=== PATIENT | female | born 1940 | race Caucasian/White ===

== ENCOUNTER 2016-07-13 09:54 | Emergency (ER) | payer OTHER ==
[~2016-07-13] VITALS: Ht 160 cm; Wt 59.0 kg
[~2016-07-13 09:54] MED LIST: DOS PO; ECOTRIN325 MG PO; FISH OIL1000 M1 PO; KEPPRA100 MG/ML PO; LIORESAL10 MG PO; LIPITOR80 MG PO; LORTAB 5/3251 TAB PO; OYSCO 500500 M1 PO; PAXIL40 MG PO; PLAVIX75 MG PO; PROTONIX40 MG PO; QVAR HFA M80 MCG/ACT IH; RESTORIL15 MG PO; TYLENOL #3 300/1 TAB PO; ULTRAM50 MG PO; VENTOLIN H0.09 MG/Ac IH; VITAMIN D31000 I1 PO; [UNRECOGNIZED DRUG - OTHER] PO
--- NOTE | 2016-07-13 09:54 | NUR ---
Patient was BIBA at this time and taken to bed 01 via gurney per EMS.
[2016-07-13 09:56] VITALS: BP 120/72
--- NOTE | 2016-07-13 10:02 | NUR ---
PT BIBA FOR EVALUATION OF SOB SINCE THIS AM. PER EMS PT IS SLIGHTLY LETHARGIC THIS AM AND O2 SATURATION IS IN 80.PT HAS 02 AT 2 LPM. W/ L ARM BANDAGE. EMS TRIED TO PUT IV ACCESS ON RT ARM BUT UNSUCCESSFUL. PT HAS HX OF COPD, GERD, OSTEOPOROSIS, HYPERLIPIDEMIA.PT AAOX4. NO ACUTE DISTRESS NOTED AT THIS TIME. HOB ELEVATED, SAFETY PRECAUTION INSTITUTED.SIDE RAILS UP. ALL MONITORS PLACED IN. DR YUSUF MADE AWARE OF PT CONDITION.
--- NOTE | 2016-07-13 10:14 | NUR ---
Dr. Masters evaluating patient at bedside.
--- NOTE | 2016-07-13 10:30 | NUR ---
[facility] AT BEDSIDE.
--- NOTE | 2016-07-13 10:47 | NUR ---
PT ASKED FOR WATER. KUSUM RUIZ TALKED TO . DR YUSUF SAYS OKAY TO GIVE FLUID. APPLE JUICE GIVEN TO PT.
[2016-07-13] MEDS ORDERED: predniSONE 20 MG TAB PO ONE (11:20)
[2016-07-13] MEDS ORDERED: HYDROcodone/APAP 5/325 MG 1 TAB TAB PO ONE (11:25)
--- NOTE | 2016-07-13 11:25 | NUR ---
NO ACUTE DISTRESS NOTED AT THIS TIME. PT AMBULATED TO RESTROOM.
--- NOTE | 2016-07-13 11:36 | NUR ---
PT IS RESTING ON BED COMFORTABLY. DAUGHTER AT BEDSIDE. NO ACUTE DISTRESS NOTED AT THIS TIME.NEEDS ATTENDED.WILL CONTINUE TO MONITOR PT.
--- NOTE | 2016-07-13 11:41 | NUR ---
Patient moved to bed 02.
--- NOTE | 2016-07-13 12:27 | NUR ---
PT IS LYING ON BED COMFORTABLY. NO ACUTE DISTRESS NOTED ATVTHIS TIME. PT IS THANKFUL FOR THE ENTIRE STAFF TAKING CARE OF HER.NEEDS ATTENDED. WILL CONTINUE TO MONITOR PT.
--- NOTE | 2016-07-13 13:12 | NUR ---
Patient discharged with v/s stable. Written and verbal after care instructions given and explained. Patient alert, oriented and verbalized understanding of instructions. Ambulatory with to car. All questions addressed prior to discharge. ID band removed. Patient advised to follow up with PMD. Rx of PREDNISONE,AZITHROMYCIN AND OXYGEN given. Patient educated on indication of medication including possible reaction and side effects. Opportunity to ask questions provided and answered.ENCOURAGED FLUID INTAKE AND PT AGREED TO IT.
[2016-07-13 13:15] VITALS: BP 124/74
== END 2016-07-13 13:12 | disposition home or self-care (01) ==
LOC: MED 09:54
DX: J44.1 Chronic obstructive pulmonary disease with (acute) exacerbation (principal); R09.02 Hypoxemia; F17.210 Nicotine dependence, cigarettes, uncomplicated; K21.9 Gastro-esophageal reflux disease without esophagitis; I10 Essential (primary) hypertension; E78.5 Hyperlipidemia, unspecified; Z79.82 Long term (current) use of aspirin; Z79.899 Other long term (current) drug therapy
CPT/HCPCS: 36415; 71010; 80053; 84484; 85025; 93005; 99285; J7512; Q0092

== ENCOUNTER 2016-12-08 15:53 | Emergency (ER) | payer OTHER ==
[~2016-12-08] VITALS: Ht 160 cm; Wt 54.4 kg
[~2016-12-08 15:53] MED LIST changes: +ALBU0.0912 IH; +ASPI-1052 PO; +BACL10TA4 PO; +BECL0.089 IH; +CALC500T19 PO; +CHOL100037 PO; -DOS PO; -ECOTRIN325 MG PO; -FISH OIL1000 M1 PO; +KEP500L PO; -KEPPRA100 MG/ML PO; -LIORESAL10 MG PO; +LIP80 PO; -LIPITOR80 MG PO; -LORTAB 5/3251 TAB PO; -OYSCO 500500 M1 PO; +PANT40EC PO; +PARO40TA1 PO; -PAXIL40 MG PO; -PLAVIX75 MG PO; -PROTONIX40 MG PO; -QVAR HFA M80 MCG/ACT IH; -RESTORIL15 MG PO; +TEMA15CA24 PO; +TYL3 PO; -TYLENOL #3 300/1 TAB PO; -ULTRAM50 MG PO; -VENTOLIN H0.09 MG/Ac IH; -VITAMIN D31000 I1 PO; +[UNRECOGNIZED DRUG - CODE] PO; +[UNRECOGNIZED DRUG - CODE] PO; -[UNRECOGNIZED DRUG - OTHER] PO
[2016-12-08 16:00] VITALS: BP 118/73
[2016-12-08] MEDS ORDERED: MAG SULF 2000 MG/WATER PREMIX 50 ML IV ONE (16:15)
[2016-12-08] MEDS ORDERED: ALBUTEROL 0.083% 2.5 MG/3 ML NEBU INH ONE (16:15)
[2016-12-08] MEDS ORDERED: IPRATROPIUM 0.02% 0.5 MG/2.5 ML NEBU INH ONE (16:15)
[2016-12-08] MEDS ORDERED: methylPREDNISolone SS 125 MG/2 ML VIAL IVP ONE (16:15)
[2016-12-08 16:38] LABS: MEAN CORPUSCULAR HGB CONC 32 g/dL (33-37)
--- NOTE | 2016-12-08 16:44 | NUR ---
Pt placed in bed 6 by EMS.
[2016-12-08 16:49] LABS: BASOPHILS # (AUTO) 0.2 K/uL (0.00-0.22); BASOPHILS % (AUTO) 3.2 % (0.0-2.0); EOSINOPHILS # (AUTO) 0.7 K/uL (0-0.4); EOSINOPHILS % (AUTO) 9.5 % (0.0-4.0); HEMATOCRIT 39.1 % (36-48); HEMOGLOBIN 12.6 g/dL (12.0-16.0); LYMPHOCYTES # (AUTO) 0.9 K/uL (2.5-16.5); LYMPHOCYTES % (AUTO) 12.5 % (20.5-51.1); MEAN CORPUSCULAR HEMOGLOBIN 29 pg (27-31); MEAN CORPUSCULAR VOLUME 90 fL (80-94); MONOCYTES # (AUTO) 0.6 K/uL (0.8-1.0); MONOCYTES % (AUTO) 8.7 % (1.7-9.3); NEUTROPHILS # (AUTO) 4.9 K/uL (1.8-7.7); NEUTROPHILS % (AUTO) 66.1 % (42.2-75.2); PLATELET COUNT (AUTO) 204 K/uL (140-450); RED BLOOD CELL COUNT(AUTO) 4.36 MIL/uL (4.20-5.40); RED CELL DISTRIBUTION WIDTH 14.4 % (11.6-13.7); WHITE BLOOD COUNT (AUTO) 7.3 K/uL (4.8-10.8)
[2016-12-08 16:52] LABS: ANION GAP 11.9 (8-16); CALCIUM 8.8 mg/dL (8.5-10.1); CARBON DIOXIDE 28.5 mmol/L (21-32); CHLORIDE 104 mmol/L (98-107); CREATININE 1.1 mg/dL (0.6-1.3); GLUCOSE 109 mg/dL (74-106); POTASSIUM 4.4 mmol/L (3.5-5.1); SODIUM SERUM 140 mmol/L (136-145); UREA NITROGEN, BLOOD 20 mg/dL (7-18)
[2016-12-08 16:56] LABS: PARTIAL THROMBOPLASTIN TIME 23.6 secs (22-35.6); PROTHROMBIN TIME 10.4 secs (10.8-13.4)
[2016-12-08 16:58] LABS: ALANINE AMINOTRANSFERASE 18 U/L (14-59); ALBUMIN 3.3 g/dL (3.4-5.0); ALKALINE PHOSPHATASE 76 U/L (46-116); ASPARTATE AMINOTRANSFERASE 21 U/L (15-37); TOTAL BILIRUBIN 0.3 mg/dL (0.0-1.0); TOTAL PROTEIN, SERUM 6.9 g/dL (6.4-8.2)
--- NOTE | 2016-12-08 17:00 | NUR ---
76/F c/o weakness and shortness of breath starting today. Pt minesh from [place]. Pt AOX4, clear speech. Per EMS, pt ran out of oxygen. Pt has hx COPD. Pt appears calm and relaxed in bed. Receiving oxygen via nc 2L. Pt tolerating well. No use of accessory muscles. RR even and unlabored. VSS.
--- NOTE | 2016-12-08 17:10 | NUR ---
Breathing treatment administered by respiratory therapist at bedside.
--- NOTE | 2016-12-08 17:19 | NUR ---
Daughter at bedside.
--- NOTE | 2016-12-08 17:40 | NUR ---
Pt assisted to restroom via w/c.
--- NOTE | 2016-12-08 17:45 | NUR ---
Pt assisted back to bed 6 via w/c
[2016-12-08 18:11] VITALS: BP 113/63
--- NOTE | 2016-12-08 18:11 | NUR ---
IV removed, catheter intact and site benign. Applied folded 4x4 gauze and tape to stop bleeding.
--- NOTE | 2016-12-08 18:12 | NUR ---
Patient discharged with v/s stable. Written and verbal after care instructions given and explained. Patient alert, oriented and verbalized understanding of instructions. Ambulatory with steady gait. All questions addressed prior to discharge. ID band removed. Patient advised to follow up with PMD. Rx of PROVENTIL INHALER, Z PACK, AND PREDNISONE given. Patient educated on indication of medication including possible reaction and side effects. Opportunity to ask questions provided and answered.
== END 2016-12-08 18:12 | disposition home or self-care (01) ==
LOC: MED 15:53
DX: J44.1 Chronic obstructive pulmonary disease with (acute) exacerbation (principal); K21.9 Gastro-esophageal reflux disease without esophagitis; I10 Essential (primary) hypertension; E78.5 Hyperlipidemia, unspecified; F17.210 Nicotine dependence, cigarettes, uncomplicated; Z86.73 Personal history of transient ischemic attack (TIA), and cerebral infarction without residual deficits; Z71.6 Tobacco abuse counseling
CPT/HCPCS: 36415; 71010; 80053; 82553; 83880; 84484; 85025; 85610; 85730; 93005; 94640; 96365; 96375; 99285; J2930; J3475; J7613; J7644; Q0092

== ENCOUNTER 2019-11-19 03:30 | Inpatient (IN) | payer OTHER, SELFPAY ==
[~2019-11-19] VITALS: Ht 162.6 cm; Wt 63.5 kg
[2019-11-19 03:30] VITALS: BP 133/65
[~2019-11-19 03:30] MED LIST changes: +ACET-503 PO; -TYL3 PO
--- NOTE | 2019-11-19 03:30 | NUR ---
PT TAKEN TO BED 1 BY BENIGNO.
--- NOTE | 2019-11-19 03:32 | NUR ---
79 YO F ELISABETHA FROM [facility] FOR O2 DESAT. PT IS COVID POSITIVE PER REPORT. PT IS A DNR, NONVERBAL ON ARRIVAL, AND A&OX1. S1S2 HEARD, LUNG SOUNDS CLEAR IN UPPER BASES, AND DIMINISHED IN BILATERAL LOWER BASES. PT PLACED ON MS SQL SERVER DEVELOPER AND 15L NON-REBREATHER MASK. BED LOCKED AND IN LOWEST POSITION. COMFORT MEASURES IN PLACE. NKA MED HX: COPD
--- NOTE | 2019-11-19 03:35 | NUR ---
PT HAD IV PLACED IN R HAND 20G PRIOR TO ARRIVAL. IV SITE IS PATENT.
[2019-11-19] MEDS ORDERED: MORPHINE SULFATE 4 MG/ML SYR IVP ONE (03:40)
[2019-11-19] MEDS ORDERED: NACL 0.9% 500 ML IV ONE (04:05)
--- NOTE | 2019-11-19 04:06 | NUR ---
XRAY AT BEDSIDE.
--- NOTE | 2019-11-19 04:19 | NUR ---
EKG BEING PERFORMED AT BEDSIDE.
[2019-11-19 04:36] LABS: ALBUMIN 2.2 g/dL (3.4-5.0); ASPARTATE AMINOTRANSFERASE 35 U/L (15-37); CREATININE 1.6 mg/dL (0.6-1.3); GLUCOSE 137 mg/dL (74-106); TOTAL BILIRUBIN 0.5 mg/dL (0.0-1.0); UREA NITROGEN, BLOOD 45 mg/dL (7-18)
[2019-11-19] MEDS ORDERED: cefTRIAXone 1,000 MG VIAL ONE (04:37)
[2019-11-19 04:38] LABS: HEMATOCRIT 46.3 % (36-48); MEAN CORPUSCULAR HEMOGLOBIN 28 pg (27-31); MEAN CORPUSCULAR HGB CONC 30 g/dL (33-37); MEAN CORPUSCULAR VOLUME 90.7 fL (80-94); PLATELET COUNT (AUTO) 199 K/uL (140-450); RED CELL DISTRIBUTION WIDTH 16.8 % (11.6-13.7); WHITE BLOOD COUNT (AUTO) 15.3 K/uL (4.8-10.8)
[2019-11-19 04:40] LABS: LYMPHOCYTES % (MANUAL) 4 % (20-46); MONOCYTES % (MANUAL) 4 % (5-12)
[2019-11-19 04:42] LABS: ANION GAP 8.9 (8-16); CARBON DIOXIDE 38.5 mmol/L (21-32); CHLORIDE 110 mmol/L (98-107); POTASSIUM 5.4 mmol/L (3.5-5.1); SODIUM SERUM 152 mmol/L (136-145)
--- NOTE | 2019-11-19 04:45 | NUR ---
SPOKE TO PTS DAUGHTER TARI AND UPDATED HER ON HER MOTHERS CONDITION. PER DAUGHTER THE PT IS NORMALLY VERBAL. CELL- HOME-
--- NOTE | 2019-11-19 05:30 | NUR ---
PT SLEEPING IN BED. AGONAL BREATHING VISUALIZED. COMFORT AND SAFETY MEASURES IN PLACE.
[2019-11-19] MEDS ORDERED: MORPHINE SULFATE 2 MG/ML SYR IVP ONE (05:40)
[2019-11-19] MEDS ORDERED: BISA-213 RC (05:49)
[2019-11-19] MEDS ORDERED: METO-485 PO (05:49)
[2019-11-19] MEDS ORDERED: SIME80TA22 PO (05:49)
[2019-11-19] MEDS ORDERED: ALBU3SOL83 IH (05:49)
[2019-11-19] MEDS ORDERED: BUSP-83 PO (05:49)
[2019-11-19] MEDS ORDERED: LACT10SO1 PO (05:49)
[2019-11-19] MEDS ORDERED: OMEP20TC12 PO (05:49)
[2019-11-19] MEDS ORDERED: PRED10TA5 PO (05:49)
[2019-11-19] MEDS ORDERED: MSCON15 PO (05:49)
[2019-11-19] MEDS ORDERED: FURO-572 PO (05:49)
[2019-11-19] MEDS ORDERED: ATI.5 PO (05:49)
--- NOTE | 2019-11-19 07:11 | NUR ---
RECEIVED REPORT FROM KUSUM SPANGLER AND [facility].
--- NOTE | 2019-11-19 07:12 | NUR ---
REPORT GIVEN TO KUSUM DOAN. TRANSFER OF CARE AT THIS TIME
--- NOTE | 2019-11-19 07:29 | NUR ---
PT RESTING COMFORTABLY AT THIS TIME. 10L VIA NON REBREATHER MASK. PT HAS AGONAL BREATHING. HOB ELEVATED FOR COMFORT. SIDE RAILS UP AND BED IN LOWEST POSITION. WILL CONTINUE TO MONITOR.
[2019-11-19] MEDS ORDERED: NACL 0.9% 1,000 ML IV SCH (07:47)
[2019-11-19] MEDS ORDERED: DOCUSATE SODIUM 100 MG GELCAP PO PRN (07:50)
[2019-11-19] MEDS ORDERED: ONDANSETRON 4 MG/2 ML VIAL IM/IVP PRN (07:50)
[2019-11-19] MEDS ORDERED: MORPHINE SULFATE 2 MG/ML SYR IVP PRN ×2 (07:50→11:30)
[2019-11-19] MEDS ORDERED: BISACODYL 10 MG SUPP RC PRN (07:50)
[2019-11-19] MEDS ORDERED: ACETAMINOPHEN 325 MG TAB PO PRN (07:50)
[2019-11-19] MEDS ORDERED: AZITHROMYCIN 500 MG INJ VIAL IV ONE (08:28)
[2019-11-19] MEDS ORDERED: AZITHROMYCIN 500 MG in DEXTROSE 5% 250 ML IV SCH (08:30)
[2019-11-19] MEDS ORDERED: NACL 0.45% 1,000 ML IV SCH (08:30)
[2019-11-19] MEDS: levETIRAcetam 500 MG in NACL 0.9% 100 ML IV SCH ×2 (08:51→09:03)
[2019-11-19 08:57] LABS: MAGNESIUM 2.3 mg/dL (1.8-2.4); PHOSPHORUS 4.9 mg/dL (2.5-4.9); THYROID STIMULATING HORMONE 0.07 uIU/mL (0.34-3.74)
[2019-11-19] MEDS ORDERED: DEXAMETHASONE 10 MG/ML VIAL IVP SCH (09:00)
[2019-11-19 09:19] LABS: CHOL/HDL RATIO 2.6 (1-4.5)
--- NOTE | 2019-11-19 09:43 | NUR ---
PT RESTING COMFORTABLY AT THIS TIME. 10L NON REBREATHER MASK APPLIED O2 LEVEL AT 90. HOB ELEVATED AND SIDE RAILS UP FOR SAFETY.
[2019-11-19 10:47] LABS: PROTHROMBIN TIME 10.2 secs (10.8-13.4)
--- NOTE | 2019-11-19 11:22 | NUR ---
PHYSIOGNOMIST NOTE: Information Provided By COURTNEY - [facility] Comments PATIENT IS NOT ALERT/ORIENTED Sharepoint Manager, Realtionship and Phone Number KEVEN MUIR SON/POA [phone] Healthcare Power of Music Instructor Yes - KEVEN MUIR - [phone] Does Patient Have a POLST Yes Identifying Problems No Social Work Triggers Is A Social Work Consult Needed No Explanation Of Identifying Problems PATIENT IS A 79-YEAR-OLD MALE ADMITTED FOR ACUTE RESPIRATORY FAILURE. PATIENT HAS PMHX OF ALZHEIMER'S DISORDER, GERD, SEIZURE DISORDER, CVA, COPD, AND HYPERTENSION. Chcf Facility [facility] - [phone] Hospice Provider [facility] - [phone] Pre-Admission Level Of Functioning Status Total Care Prior Resources/Services Used In Last 12 Months Hospice SNF Long Term Care Prior DME Shower Chair/Tub Bench Hospital Bed Wheelchair Home Support No Caregiver Issues Financial Issues No Known Financial Issue Factors/Needs Hospice SNF/NH Placement Pt/Rep Participated In Discharge Plan Yes Discharge Plan Comments TENTATIVE DISCHARGE PLAN IS FOR PATIENT TO RETURN TO [facility]. DC Plan Status Initiated
[2019-11-19] MEDS ORDERED: LORazepam 2 MG/ML VIAL IM/IVP PRN (11:30)
[2019-11-19] MEDS ORDERED: MORPHINE SULFATE 50 MG in NACL 0.9% 45 ML IV PRN (11:30)
--- NOTE | 2019-11-19 11:38 | NUR ---
PT RESTING COMFORTABLY, UNRESPONSIVE. 10L NON REBREATHER WITH O2 AT 88
--- NOTE | 2019-11-19 13:35 | NUR ---
PT RESTING IN BED ON COMFORT MEASURES. MORPHINE TITRATE DRIP RUNNING AT THIS TIME.
--- NOTE | 2019-11-19 15:15 | NUR ---
DC PLANNIN YRS OLD MALE PATIENT WAS ADMITTED FROM [facility] WITH A DX OF ACUTE RESP FAILURE. PT HAS A HX OF ALZHEIMER DISEASE , DEMENTIA, SEIZURE AND MULTIPLE OTHER COMORBIDITIES. AT THE FACILITIES PT TESTED POSITIVE FOR COVID -19. PT IS BED BOUND ,NON-VERBAL AND DNR DNI. STARTED IVF, DECADRON , CONTINUE HOME MEDS. MD DISCUSSED COMFORT CARE WITH FAMILY BUT PER FAMILY NEEDS MORE TIME TO DECIDE. CM TO FOLLOW.
--- NOTE | 2019-11-19 15:50 | NUR ---
PT ARRIVED AT UNIT, PT IS ON COMFORT CARE, IV TO R FA 22G PATENT INTACT, ON MORPHINE DRIP, 18ML/HR, PT ON NONREBREATHER MASK 8LPM O2, COMFORTABLE, BP 76/45, HR 101, O2 SAT 73%, RR 38 ,PER DR KATHLEEN TO INCREASE O2 TO 10LPM AND TITRATE TO PT COMFORTABLE LEVEL, TITRATED O2 TO 10LPM, RR IS NOW 36, MRSA SWAB TAKEN, WILL CONTINUE TO MONITOR.
[2019-11-19 15:55] VITALS: BP 76/45
--- NOTE | 2019-11-19 16:02 | NUR ---
Patient will be admitted to care of DR WARD. Admited to [facility]. Will go to room 130A. Belongings list completed. Report to KUSUM COSBY.
[2019-11-19] MEDS: MORPHINE SULFATE 100 MG in NACL 0.9% 90 ML IV PRN ×2 (17:47→21:57)
--- NOTE | 2019-11-19 19:38 | NUR ---
ENDORSED PT TO BORDER PATROL AGENT NURSE USAMA FOR CONTINUOUS OF CARE.
--- NOTE | 2019-11-19 19:39 | NUR ---
REPORT RECEIVED FROM AM NURSE AT BEDSIDE. PT IS ACTIVELY DYING. PT FLACC 0 ON MORPHINE DRIP@18MG/HR OR 18ML/HR. PT ON 12L NONREBREATHER SATTING@70% HAVING AGONAL BREATHING. PT V/S DECREASING. BP 53/32 BUT HR STILL STRONG@89BPM. PT HAS A R FA 22G RUNNING MORPHINE DRIP PATENT AND INTACT. COMFORT MEASURES IN PLACE. PT COVID19+ AND IS DNR.
[2019-11-19 20:00] VITALS: BP 53/32
--- NOTE | 2019-11-19 21:25 | NUR ---
PT CURRENTLY ON COMFORT MEASURES AND IN AGONAL BREATHING. BP DECREASING CURRENTLY@50/34. MORPHINE DRIP STILL@18ML/HR.
[2019-11-19 21:57] VITALS: BP 52/29
--- NOTE | 2019-11-19 21:57 | NUR ---
NEW MORPHINE DRIP BAG HUNG FOR CONTINUOUS DRIP.
--- NOTE | 2019-11-19 23:20 | NUR ---
PT ASYSTOLE ON MONITOR. MD NOTIFIED. TIME OF CALLED BY DR. [email or web address]. MORPHINE DRIP STOPPED. WILL NOTIFY BIBLE WORKER AND CALL [facility].
--- NOTE | 2019-11-19 23:45 | NUR ---
FAMILY NOTIFIED OF PATIENT'S . WILL MAKE A DECISION ON MORTUARY SERVICES.
--- NOTE | 2019-11-20 00:30 | NUR ---
CALLED NEXT OF KIN KEVEN TO DISCUSS NEXT STEP AND DECISION ON MORTUARY. FAMILY SAID HE WILL TALK WITH OTHER MEMBERS AND MAKE A DECISION IN THE MORNING.
--- NOTE | 2019-11-20 00:35 | NUR ---
CALLED [employer] OFFICE TO GIVE INFORMATION. THEY WILL CALL BACK FOR CASE DETAILS.
--- NOTE | 2019-11-20 00:40 | NUR ---
ATTEMPTED TO CALL KEVEN AGAIN TO INFORM HIM THAT WE CANNOT HOLD THE BODY BUT NO ANSWER.
--- NOTE | 2019-11-20 00:45 | NUR ---
CALLED [facility]. . PT IS NOT A CANDIDATE FOR ORGAN DONATION.
--- NOTE | 2019-11-20 00:50 | NUR ---
ATTEMPTED TO CALL KEVEN AGAIN AND OTHER NEXT OF KIN LORY. NO ANSWER FROM EITHER MEMBERS.
--- NOTE | 2019-11-20 01:20 | NUR ---
RECEIVED A CALL FROM DEPUTY SULY MILLS. HE INFORMED ME THAT [facility] OFFICE WILL DECLINE THIS CASE AND HAVE THE BODY SENT TO MORTUARY OF FAMILY'S CHOICE AND WILL START A DELAYED CASE WHEN THE BODY IS SENT THERE. INFORMED HIM OF THE SITUATION WITH THE FAMILY NOT HAVING CHOSE A MORTUARY AT THIS TIME. NO CASE NUMBER HAS BEEN GIVEN. HE SAID WILL BE GIVEN AT A LATER TIME WHEN THEY DO ACCEPT THE CASE AT [facility].
--- NOTE | 2019-11-20 01:30 | NUR ---
TRIED TO REACH FAMILY AGAIN UNSUCCESSFULLY. WILL ATTEMPT AGAIN AT A LATER TIME.
--- NOTE | 2019-11-20 02:05 | NUR ---
BODY CLEANED AND PUT IN A BAG. IV REMOVED. MORPHINE WASTED WITH SECONDARY NURSE SAGE Coppola RN.
--- NOTE | 2019-11-20 03:00 | NUR ---
BODY IS SRECEIVED FOR USAMA NOE AND ALUMNI RELATIONS OFFICER AWARE THAT LEGAL NEXT OF KIN BIEDERERKEVEN IS PENDING TO GIVE THE NAME OF THE MORTUARY AND THE BLOCK SPLITTER OPERATOR SULY MILLS NEEDS THE NAME OF THE MORTUARY TO RELEASE THE BODY
--- NOTE | 2019-11-20 07:10 | NUR ---
THE CASE WILL BE ENDORSED TO CHARGE NURSE COMMING IN TO FOLLOW
--- NOTE | 2019-11-20 08:08 | NUR ---
RECEIVED REPORT FROM KUSUM VARELA TO FOLLOW UP SON KEVEN, LEFT MESSAGE. I CALLED THE OTHER NUMBER AND SPOKE TO A LADY SHE DOESNT WANT TO GIVE HER NAME WHEN I ASKED HER. SHE SAID SHE WILL CALL KEVEN TO NOTIFY HIM.
[2019-11-20] MEDS ORDERED: AZITHROMYCIN 250 MG in DEXTROSE 5% 250 ML IV SCH (09:00)
[2019-11-20] MEDS ORDERED: cefTRIAXone 1,000 MG in LIDOCAINE MPF 1% 2.1 ML IM SCH (09:00)
--- NOTE | 2019-11-20 10:30 | NUR ---
KEVEN THE SON OF THE PATIENT CALLED AND GAVE ME THE NAME OF THE MORTUARY. [facility] .
--- NOTE | 2019-11-20 10:59 | NUR ---
CALLED [facility]ERS OFFICE AT AND SPOKE TO LUZ, SHE SAID SINCE THERE IS MORTUARY ALREADY, IT"S NOT A [facility] CASE. WILL FOLLOW UP.
--- NOTE | 2019-11-20 11:01 | NUR ---
[facility]ED [facility] , SPOKE TO EDMUND INFORMED HIM THAT IF THEY CAN PUFFER TENDER THE BODY SOONER DUE TO NO MORGUE AVAILABLE HERE. HE SAID HE WILL CALL THE STATION FOR TIME OF PUFFER TENDER.
--- NOTE | 2019-11-20 14:27 | NUR ---
[facility] HERE TO MARKETING SERVICES COORDINATOR PATIENT.
--- NOTE | 2019-11-20 14:30 | NUR ---
NOTIFIED SON KEVEN REGARDING THE BELONGINGS (SMALL PILLOW AND A MERYL BEAR) HE SAID JUST TOSSED IT. AND THE [place] RING HER SISTER HAD IT.
== END 2019-11-19 23:20 | disposition expired | DRG 871 ==
LOC: MED 03:30 → EEVIPCON 03:30 → MTU 06:55 → MMU 15:30
PROVIDERS: ADMIT General Practice; ATTEND General Practice
DX: A41.9 Sepsis, unspecified organism (principal); J69.0 Pneumonitis due to inhalation of food and vomit; E43 Unspecified severe protein-calorie malnutrition; J96.01 Acute respiratory failure with hypoxia; N17.0 Acute kidney failure with tubular necrosis; U07.1 COVID-19; I21.A1 Myocardial infarction type 2; J12.9 Viral pneumonia, unspecified; E87.0 Hyperosmolality and hypernatremia; Z66 Do not resuscitate; K21.9 Gastro-esophageal reflux disease without esophagitis; I10 Essential (primary) hypertension; J44.9 Chronic obstructive pulmonary disease, unspecified; G30.9 Alzheimer's disease, unspecified; F02.80 Dementia in other diseases classified elsewhere, unspecified severity, without behavioral disturbance, psychotic disturbance, mood disturbance, and anxiety; G40.909 Epilepsy, unspecified, not intractable, without status epilepticus; E86.0 Dehydration; E87.8 Other disorders of electrolyte and fluid balance, not elsewhere classified; M62.50 Muscle wasting and atrophy, not elsewhere classified, unspecified site; Z79.899 Other long term (current) drug therapy; Z86.73 Personal history of transient ischemic attack (TIA), and cerebral infarction without residual deficits; E87.5 Hyperkalemia
CPT/HCPCS: 36415; 36600; 71045; 80053; 82728; 82803; 83036; 83615; 83735; 84100; 84134; 84443; 84484; 85025; 85379; 85610; 85651; 85730; 86140; 87040; 87081; 93005; 96375; 99285; J0456; J0696; J1100; J1644; J1953; J2270; J7060; Q0092